=== PATIENT | female | born 1960 | race Caucasian/White ===

== ENCOUNTER → 2019-05-05 | Outpatient (CLI) | payer MEDICARE, OTHER ==
--- NOTE | 2019-05-05 17:21 | KCIC ---
Indication: Postmenopausal screening for osteoporosis. Family history of osteoporosis. History of lumbar fusion and pain stimulator. Therefore the lumbar spine was not evaluated. Instead, the right forearm was evaluated. COMPARISON: None available. Bone Density: -BMD: (g/cm2) - AP Total distal right forearm .......... 0.468. - Total left Hip................. 0.734. T-Score: - AP Total distal right forearm ......... -1.9. - Total left Hip................. -1.7. Z-Score: - AP Total distal right forearm .......... -0.6. - Total left Hip................. -0.8. World Health Organization criteria for BMD interpretation classify patients as Normal (T-score at or above -1.0), Osteopenic (T-score between -1.0 and -2.5), or Osteoporotic (T-score at or below -2.5). Impression: 1. AP Total distal right forearm--- osteopenia. 2. Total left Hip--- osteopenia. Electronically signed by: Fadi Inman MD (05/05/2019 5:18 PM) [facility] [place]
== END | disposition home or self-care (01) ==
LOC: KCIC DEXA 11:33
PROVIDERS: ATTEND Family Medicine
DX: Z13.820 Encounter for screening for osteoporosis (principal); M85.831 Other specified disorders of bone density and structure, right forearm; M85.88 Other specified disorders of bone density and structure, other site; Z78.0 Asymptomatic menopausal state; Z82.62 Family history of osteoporosis
CPT/HCPCS: 77080; 77081